=== PATIENT | female | born 1995 | race Caucasian/White ===

== ENCOUNTER 2020-02-16 15:42 | Inpatient (IN) | payer OTHER, SELFPAY ==
[2020-02-16] VITALS (12 sets, daily range): BP systolic 101–139; BP diastolic 55–92; PULSE 94–122; RESP 20–30; TEMP 36.8–39.8; O2SAT 81–97; BMI 43.6; BMI 43.7; BMI 41.3
--- NOTE | 2020-02-16 16:10 | RAD_ITS ---
STUDY: X-RAY CHEST REASON FOR EXAM: Female, 24 years old. pt COVID positive on thursday. sob, cough, body aches, 88% on RA TECHNIQUE: Single AP portable view of the chest. COMPARISON: 2016 FINDINGS: EKG leads overlie the chest Scattered patchy opacifications in both lung walker more prominent on the right than the left. Findings are consistent with Covid pneumonia, but also could be seen with multifocal pneumonitis or drug toxicity/interaction There is no demonstrated pleural abnormality. Normal size heart. Normal mediastinum and caroline. Normal visualized pulmonary arteries. Normal visualized aortic arch and descending thoracic aorta. Normal visualized thoracic spine. Normal visualized ribs, clavicles, and shoulders. There is no demonstrated abnormality of the visualized soft tissue structures of the upper abdomen. RAD/Chest 1 View (Portable) IMPRESSION: Patchy interstitial and air space opacifications of both lung walker. Differential as described above. Electronically Signed: Wong Guillen MD at 16:26 EST , Service support ,
--- NOTE | 2020-02-16 16:21 | ED.VIS.DYS ---
History of Present Illness Chief Complaint: Shortness of Breath Informant: Patient Narrative: Patient presenting for evaluation secondary to complications from coronavirus. Patient did recently test positive for coronavirus, she has had symptoms for around a week. Patient states that recently she has been getting significantly more short of breath. She has been having nausea and vomiting and diarrhea associated with this. She has generalized malaise and fevers. She did take Tylenol just prior to arrival. She is a non-smoker, she has no history of lung disease. Patient was noted to be hypoxic on room air prior to arrival in the 80s. She denies any chest pain. She denies any hemoptysis. Review of systems otherwise negative. Past Medical History - Allergies and Home Meds Allergies/Adverse Reactions: Allergies No Known Allergies Allergy (Verified 01/05/15 08:18) Primary Care Physician: Stephanie Singleton DO [STAFF PHYSICIAN] - Prior records reviewed: Yes Past Medical History: - - PCOS Smoking Status: Never smoker Alcohol: None Drugs: None Review of Systems All systems negative except as indicated General: Reports: Fever, Malaise Eyes: Denies: Visual changes - bilaterally, Diplopia ENT: Denies: Rhinorrhea, Sore throat Cardiovascular: Denies: Chest pain, Palpitations Respiratory: Reports: Dyspnea, Cough Gastrointestinal: Reports: Nausea, Vomiting, Diarrhea Genitourinary: Denies: Dysuria, Hematuria, Frequency Musculoskeletal: Denies: Back pain, Extremity Pain Skin: Denies: Rash, Wounds Neurological: Denies: Headache, Weakness, Numbness Physical Exam Vital Signs/Narrative: Vital Signs Temp Pulse Resp BP Pulse Ox 02/16/20 15:43 98.7 F 114 H 20 H 111/79 96 Inital Vital Signs reviewed: Yes General: Well nourished, Well developed, No Acute Distress Head: Normocephalic, Atraumatic Eyes: Perrl, EOMI ENT: Moist mucous membranes, No rhinorrhea Neck: Supple, Nontender Cardiovascular: Regular rhythm, No murmurs, Tachycardia Respiratory: CTA bilaterally, Chest nontender, - - Tachypnea without overt respiratory distress. Clear lung sounds. Abdomen: Soft, Nontender, Nondistended, Normal bowel sounds Back: Nontender, Normal Inspection Extremities: Nontender, No edema Skin: Normal color, No rash Neurological: Alert, Oriented x3, Cranial nerves II-XII grossly intact, Normal Strength, Normal Sensation Psychological: Normal affect, Normal Mood Diagnostic/Tx/Re-eval Clinical Impression(s) from Imaging Studies Chest X-Ray 02/16/20 16:10 IMPRESSION: Patchy interstitial and air space opacifications of both lung walker. Differential as described above. Electronically Signed: Wong Guillen MD at 16:26 EST , Service support , Laboratory Data 02/16/20 02/16/20 02/16/20 16:35 16:35 16:35 WBC 7.7 RBC 5.02 Hgb 13.7 Hct 42.1 MCV 83.9 MCH 27.3 MCHC 32.5 RDW Std Deviation 37.7 RDW Coeff of David 12.4 Plt Count 233 MPV 10.6 Neut % (Auto) Not Reportable Total Counted 100 Neutrophils % (Manual) 66 Band Neutrophils % 2 Lymphocytes % (Manual) 22 Monocytes % (Manual) 5 Myelocytes % 5 H Diff Path Review May foll Platelet Estimate ADEQUATE RBC Morphology NORM C+C Anisocytosis RARE Sodium 137 Potassium 3.2 L Chloride 102 Carbon Dioxide 27.0 Anion Gap 8 BUN 7 Creatinine 0.75 Estim Creat Clear Calc 86.53 Est GFR (MDRD) Af Amer 121 Est GFR (MDRD) Non-Af 100 BUN/Creatinine Ratio 9.4 L Glucose 99 Lactic Acid 1.4 Calcium 8.6 Total Bilirubin 0.40 AST 35 ALT 35 Alkaline Phosphatase 62 Total Protein 7.6 Albumin 3.3 Globulin 4.3 H Albumin/Globulin Ratio 0.8 L - Medical Decision Making Patient presented secondary to complications of coronavirus. Chest x-ray per radiology review as well as my personal review shows 1 view of the chest with bilateral infiltrates consistent with coronavirus infection. CBC is not significantly abnormal, chemistry shows hypokalemia, potassium was replaced lactic acid was found to be normal. Initially I thought the patient would be a candidate for outpatient home oxygen, but unfortunately she lives in [place] and not in the area and that was unable to be coordinated. Due to the patient's new oxygen requirement I believe that she requires admission. I discussed this with the hospitalist. ED Disposition - Plan for ED Patient: Disposition: Acute Care Hospital [facility] Diagnosis: COVID-19, Hypoxia, Hypokalemia
[2020-02-16 16:55] LABS: Hematocrit 42.1 % (37-47); Hemoglobin 13.7 g/dL (12.0-15.0); Mean Corp Hgb Conc 32.5 g/dL (32-36); Mean Corpuscular Hgb 27.3 pg (27.0-32.0); Mean Corpuscular Volume 83.9 fL (81-99); Mean Platelet Vol. 10.6 fl (6.2-12.0); POSITIVE COUNT YES; POSITIVE MORPHOLOGY YES; Platelet Count 233 K/mm3 (150-450); RBC Distribution Width CV 12.4 % (11.6-14.6); RBC Distribution Width SD 37.7 fl (35.1-43.9); Red Blood Count 5.02 M/mm3 (4.2-5.4); White Blood Count 7.7 K/mm3 (4.4-11.0)
[2020-02-16 17:01] LABS: ALB/GLOB Ratio 0.8 RATIO (0.9-2.4); AST(SGOT) 35 U/L (15-37); Alanine Aminotransfer ALT/SGPT 35 U/L (13-56); Albumin, Serum 3.3 g/dL (3.2-5.0); Alkaline Phosphatase 62 U/L (45-117); Anion Gap 8 (5-15); BUN 7 mg/dL (7-18); BUN/Creat Ratio 9.4 RATIO (10-20); Calcium,Total 8.6 mg/dL (8.5-10.1); Chloride 102 mmol/L (98-107); Creatinine, Serum 0.75 mg/dL (0.55-1.02); EST Glomerular Filtration Rate 100 mL/min (>60); Est Glom Filt Rate - Afr Amer 121 mL/min (>60); Estimated Creatinine Clearance 86.53 ml/min; Globulin 4.3 g/dL (2.2-4.2); Glucose 99 mg/dL (74-106); Potassium 3.2 mmol/L (3.5-5.1); Protein, Total 7.6 g/dL (6.4-8.2); Sodium Level 137 mmol/L (136-145)
[2020-02-16 17:06] LABS: Lactic Acid 1.4 mmol/L (0.4-1.9)
[2020-02-16 17:14] LABS: Differential Indicated MANUAL DIFF
[2020-02-16 17:32] LABS: Lymphocyte 22 % (19-41); Monocyte 5 % (0-10); Myelocyte 5 (0-0); Neutrophil-Band 2 % (0-5); Neutrophil-Segmented 66 % (47-70); Total Cells Counted 100 (MANUAL DIFF)
[2020-02-16 17:33] LABS: Anisocytosis RARE; Platelet Estimate ADEQUATE (ADEQ); Red Cell Morphology NORM C+C NORMAL (NORM C&C)
[2020-02-16 17:42] LABS: Absolute Lymphocyte Count 1.68 X10^3/uL (0.83-4.51); Absolute Neutrophil Count 5.2 X10^3/uL (2.0-7.7)
--- NOTE | 2020-02-16 17:50 | PCM.HP.STD ---
History of Present Illness Date of Admission: 02/16/20 Chief Complaint: shortness of breath The patient is a 24 year old F with a past medical history of polycystic ovarian disease. She was admitted through the ED on 02/16/2020 with a complaint of shortness of breath which is not improving. Patient states she tested positive for coronavirus about 5 days ago and has had symptoms for about a week before then. She states her boyfriend also has coronavirus but his is a very mild case. She lives in [place] and [place] However his symptoms got worse and her shortness of breath got more worse with a cough which was minimally productive. She also had nausea and vomiting as well as diarrhea associated and generalized malaise and fevers. On admission in the ED, she was noted to have been hypoxic prior to arrival with saturation in the 80s. Review of symptoms otherwise negative. Vitals show temperature of 98.3 with blood pressure of 101/69, pulse rate of 108 and respiratory rate of 29. She was saturating at 97% on 2 L of oxygen. Chemistry showed potassium of 3.2 but was otherwise unremarkable with lactic acid of 1.4. CBC was also unremarkable. Chest x-ray showed patchy interstitial and airspace opacifications of both lung walker. She has been admitted to be managed for acute hypoxic respiratory insufficiency due to COVID-19 infection[] Past Medical History Allergies No Known Allergies Allergy (Verified 01/05/15 08:18) Home Medications: Ambulatory Orders Medication Instructions Recorded Acetaminophen [Tylenol Extra 1,000 mg PO Q6H PRN PRN 02/16/20 Strength] Doxycycline Hyclate 100 mg PO BID 02/16/20 Metformin HCl [Metformin HCl ER] 500 mg PO DAILY 02/16/20 Surgical History: no surgical history Psychiatric History: No pertinent psych hx [employer] History: No pertinent [employer] history Lives: With Family Smoking Status: Never smoker Alcohol: None Drugs: None - *Family History Maternal History Items: No pertinent history Paternal History Items: No pertinent history Review of Systems Constitutional: Reports: Anorexia, Chills, Fever, Malaise, Weakness, Fatigue Eyes: Denies: Blurred vision HEENT: Denies: Head Aches, Sinus Congestion, Sinus Drainage Cardiovascular: Denies: Chest Pain, Palpitations Respiratory: Reports: Cough, Shortness of Breath, Shortness of breath at rest, Shortness of breath upon exertion, Sputum production Gastrointestinal: Denies: Abdominal Pain, Nausea, Vomiting Genitourinary: Denies: Dysuria Musculoskeletal: Denies: Joint Pain, Joint Tenderness Skin: Denies: Rash, Wounds Neurological: Denies: Numbness, Tingling, Focal weakness Psychiatric: Denies: Anxiety, Depression, Homicidal Ideations, Suicidal Ideations Hematologic/ Lymphatic: Denies: Easy Bruising, Easy Bleeding VTE Information - Inpt Only VTE Present on Admission: No VTE Pharm Prophylaxis ordered?: Yes - Physical Exam Vitals/I&O's: Vital Signs Temp Pulse Resp BP Pulse Ox 98.3 F 108 H 29 H 101/69 97 02/16/20 17:10 02/16/20 17:10 02/16/20 17:10 02/16/20 17:10 02/16/20 17:10 Oxygen Flow Rate (L/min) 2 Oxygen Delivery Method Nasal Cannula Weight: 231 lb 0.711 oz Body Mass Index (BMI) 43.6 General: Alert, Oriented x3, Cooperative, No apparent distress, - - looks uncomfortable HEENT: Atraumatic, PERRLA, EOMI, Normocephalic Oral: Dry Mucosa Neck: Supple, No JVD, Negative Carotid Bruits Lungs: - - Diminished breath sounds bibasilarly. No wheezes or crackles. Tachypneic. On 2 L of oxygen. Cardiovascular: Regular rate, Regular Rhythm, No murmurs Abdomen: Bowel Sounds Present, Soft, Non Tender, Non-Distended, No Hepato-splenomegaly Extremities: No clubbing, No cyanosis, No edema, Capillary Refill Less than 3 Seconds Skin: No rashes, No breakdown Musculoskeletal: No Tenderness to Palpation of Joints or Extremities Lymphatic: No Cervical, Supraclavicular, or Inguinal Adenopathy Neurological: Cranial nerves II-XII grossly intact, Neuro grossly intact, Motor Exam 5/5 strength throughout Psych/Mental Status: Normal Affect, Appropriate, Alert and oriented to time, place, person, mood and affect Laboratory Results 02/16/20 16:35: WBC 7.7, RBC 5.02, Hgb 13.7, Hct 42.1, MCV 83.9, MCH 27.3, MCHC 32.5, RDW Std Deviation 37.7, RDW Coeff of David 12.4, Plt Count 233, MPV 10.6, Neut % (Auto) Not Reportable, Absolute Neuts (auto) 5.2, Absolute Lymphs (auto) 1.68, Total Counted 100, Neutrophils % (Manual) 66, Band Neutrophils % 2, Lymphocytes % (Manual) 22, Monocytes % (Manual) 5, Myelocytes % 5 H, Diff Path Review July, Platelet Estimate ADEQUATE, RBC Morphology NORM C+C, Anisocytosis RARE 02/16/20 16:35: Sodium 137, Potassium 3.2 L, Chloride 102, Carbon Dioxide 27.0, Anion Gap 8, BUN 7, Creatinine 0.75, Estim Creat Clear Calc 86.53, Est GFR (MDRD) Af Amer 121, Est GFR (MDRD) Non-Af 100, BUN/Creatinine Ratio 9.4 L, Glucose 99, Calcium 8.6, Total Bilirubin 0.40, AST 35, ALT 35, Alkaline Phosphatase 62, Total Protein 7.6, Albumin 3.3, Globulin 4.3 H, Albumin/Globulin Ratio 0.8 L 02/16/20 16:35: Lactic Acid 1.4 Diagnostic Data Chest X-Ray 02/16/20 16:10 IMPRESSION: Patchy interstitial and air space opacifications of both lung walker. Differential as described above. Electronically Signed: Wong Guillen MD at 16:26 EST , Service support , Current Medications Sodium Chloride () 1,000 mls @ 125 mls/hr IV .Q8H [facility] Assessment/Plan All Active Problems COVID-19 (Acute) Hypoxia (Acute) Hypokalemia (Acute) 24-year-old patient admitted with a complaint of shortness of breath as well as nausea, vomiting and diarrhea. #Acute hypoxic respiratory insufficiency due to COVID-19 infection Admit to Covid unit Consult ID. Check D-dimer, LDH, CRP IV Decadron 6 mg daily Titrate oxygen to maintain saturation above 90% Breathing treatments with bronchodilators Tylenol as needed, IV Zofran ID to decide if patient will benefit from remdesivir and convalescent plasma #COVID-19 infection: As above #SIRS criteria: There is no clear evidence of bacterial infection. This is likely due to Covid. She is tachycardic and tachypneic. Will monitor not start antibiotics for now. ##Hypokalemia: Potassium is 3.3. Will replace. #: History of polycystic ovarian syndrome: Stable DVT prophylaxis: Lovenox Inpatient E&M: 32315 Init Hosp L3
[2020-02-16] MEDS: 0.9% Normal Saline 1,000 ML 125 ML IV (17:53)
[2020-02-16] MEDS: Acetaminophen 325 MG Tablet 650 MG PO (21:49)
[2020-02-16 21:50] LABS: Fibrinogen 625 mg/dl (203-444); International Normalized Ratio 1.1; Prothrombin Time (Protime)PT. 13.2 SECONDS (11.7-14.9)
[2020-02-16] MEDS: Enoxaparin 40 MG/0.4 ML Syringe SC (21:50)
[2020-02-16 22:02] LABS: LDH 317 U/L (84-246)
[2020-02-16 22:24] LABS: CPK Total, Creatine Kinase 282 U/L (26-192)
[2020-02-16 22:52] LABS: BNP,B-Type NATRIURETIC PEPTIDE < 2.0 pg/mL (0-100)
[2020-02-17] VITALS (14 sets, daily range): BP systolic 108–127; BP diastolic 68–82; PULSE 84–112; RESP 20–28; TEMP 36.4–38.1; O2SAT 69–97
[2020-02-17] MEDS: Acetaminophen 325 MG Tablet 650 MG PO ×3 (05:21→20:31)
[2020-02-17] MEDS: guaiFENesin 10 ML UDC (200MG/10ML) PO ×3 (05:21→20:31)
[2020-02-17 06:02] LABS: Absolute Lymphocyte Count 1.45 X10^3/uL (0.83-4.51); Absolute Neutrophil Count 4.7 X10^3/uL (2.0-7.7); Basophil# 0.05 X10^3/uL; Basophil% 0.7 % (0-1); Hematocrit 37.8 % (37-47); Hemoglobin 12.1 g/dL (12.0-15.0); Lymphocyte # 1.45 X10^3/ul (4.0); Lymphocyte % 20.8 % (19-41); Mean Corpuscular Hgb 27.4 pg (27.0-32.0); Mean Corpuscular Volume 85.7 fL (81-99); Mean Platelet Vol. 10.6 fl (6.2-12.0); Monocyte# 0.46 X10^3/uL; Monocyte% 6.6 % (0-10); NRBC Flagged by Analyzer 0 % (0-5); Neutrophil % 67.6 % (47-70); Platelet Count 193 K/mm3 (150-450); RBC Distribution Width CV 12.5 % (11.6-14.6); RBC Distribution Width SD 38.9 fl (35.1-43.9); Red Blood Count 4.41 M/mm3 (4.2-5.4)
[2020-02-17 06:29] LABS: ALB/GLOB Ratio 0.7 RATIO (0.9-2.4); AST(SGOT) 31 U/L (15-37); Alanine Aminotransfer ALT/SGPT 27 U/L (13-56); Albumin, Serum 2.6 g/dL (3.2-5.0); Alkaline Phosphatase 52 U/L (45-117); Anion Gap 5 (5-15); BUN 5 mg/dL (7-18); BUN/Creat Ratio 8.8 RATIO (10-20); Chloride 106 mmol/L (98-107); Creatinine, Serum 0.57 mg/dL (0.55-1.02); EST Glomerular Filtration Rate 136 mL/min (>60); Est Glom Filt Rate - Afr Amer 165 mL/min (>60); Estimated Creatinine Clearance 113.85 ml/min; Globulin 3.7 g/dL (2.2-4.2); Glucose 101 mg/dL (74-106); Potassium 3.5 mmol/L (3.5-5.1); Protein, Total 6.3 g/dL (6.4-8.2); Sodium Level 135 mmol/L (136-145)
[2020-02-17 06:50] LABS: D-Dimer Quantitative (DVT/PE) 0.67 FEU/ug/m (0.27-0.49)
--- NOTE | 2020-02-17 06:52 | CON.PCM_ITS ---
Reason for Consult Date of Consultation: 02/17/20 Reason for Consultation: Acute respiratory insufficiency secondary to COVID-19 pneumonia History of Present Illness: The patient is a 24-year-old female, with a history as outlined below, who presented to the emergency department on February 15 with complaints of shortness of breath and nonproductive cough. The patient initially tested positive for coronavirus approximately 6 days ago with symptoms that preceded her testing by 5 days. The patient does report exposure to her boyfriend who has been diagnosed with coronavirus. The patient normally resides in [place] but is in the area to visit family. On presentation to the emergency department, the patient was noted to be afebrile but was tachycardic and tachypneic. She was initially documented to be saturating 81% on room air. Laboratory evaluation revealed a normal CBC with differential. Coagulation profile revealed a mildly elevated D-dimer. Chemistry profile was notable for a potassium of 3.2 and procalcitonin of 0.10. Chest x-ray revealed patchy bilateral airspace opacities, right greater than left. The patient was started on Decadron and admitted to the coronavirus cohort unit for further management. Past Medical History Allergies No Known Allergies Allergy (Verified 01/05/15 08:18) Home Medications: Ambulatory Orders Medication Instructions Recorded Acetaminophen [Tylenol Extra 1,000 mg PO Q6H PRN PRN 02/16/20 Strength] Doxycycline Hyclate 100 mg PO BID 02/16/20 Metformin HCl [Metformin HCl ER] 500 mg PO DAILY 02/16/20 Surgical History: no surgical history Psychiatric History: No pertinent psych hx [employer] History: No pertinent [employer] history Lives: With Family Smoking Status: Never smoker Alcohol: None Drugs: None - *Family History Maternal History Items: No pertinent history Paternal History Items: No pertinent history Review of Systems Constitutional: Reports: Malaise, Weakness, Fatigue Eyes: Denies: Blurred vision, Double vision HEENT: Denies: Head Aches, Sinus Congestion, Sinus Drainage Cardiovascular: Denies: Chest Pain, Palpitations Respiratory: Reports: Cough, Shortness of Breath Gastrointestinal: Denies: Abdominal Pain, Nausea, Vomiting Genitourinary: Denies: Dysuria Musculoskeletal: Denies: Joint Pain, Joint Tenderness Skin: Denies: Rash, Wounds Neurological: Denies: Numbness, Tingling, Focal weakness Psychiatric: Denies: Anxiety, Depression, Homicidal Ideations, Suicidal Ideations Hematologic/ Lymphatic: Denies: Easy Bruising, Easy Bleeding Patient Problems: Active and Suspected Problems COVID-19 (Acute) Objective: The patient's most recent lab work, culture data and imaging studies have all been personally reviewed. - Physical Exam Vitals/I&O's: Vital Signs Temp Pulse Resp BP Pulse Ox 100.5 F H 110 H 28 H 121/70 H 95 02/17/20 05:23 02/17/20 05:23 02/17/20 05:23 02/17/20 05:23 02/17/20 05:23 Oxygen Flow Rate (L/min) 2 Oxygen Delivery Method Nasal Cannula Weight: 219 lb Body Mass Index (BMI) 41.3 Intake and Output for Last 24 Hours 02/15/20 02/16/20 02/17/20 23:59 23:59 23:59 Intake Total 740 / 740 1999 Balance 740 / 740 1999 General: Alert, Cooperative, No apparent distress, - - Ill and fatigued in appearance HEENT: Atraumatic, PERRLA, Normocephalic Oral: No Gingival or Mucosal Lesions/ Ulcerations Neck: Supple, No Nodes, Trachea Midline Lungs: Tachypneic, - - Fair air movement bilaterally with frequent coughing. Cardiovascular: Normal S1, Normal S2, No murmurs, Tachycardic Abdomen: Bowel Sounds Present, Soft, Non Tender, Obese Extremities: No clubbing, No cyanosis, No edema Skin: No breakdown Musculoskeletal: No Tenderness to Palpation of Joints or Extremities, No Muscle Wasting Lymphatic: No Cervical, Supraclavicular, or Inguinal Adenopathy Neurological: Cranial nerves II-XII grossly intact, Neuro grossly intact Psych/Mental Status: Alert and oriented to time, place, person, mood and affect Labs (Last 48 Hours) 02/16/20 02/16/20 02/16/20 16:35 16:35 16:35 WBC 7.7 RBC 5.02 Hgb 13.7 Hct 42.1 MCV 83.9 MCH 27.3 MCHC 32.5 RDW Std Deviation 37.7 RDW Coeff of David 12.4 Plt Count 233 MPV 10.6 Immature Gran % (Auto) Neut % (Auto) Not Reportable Lymph % (Auto) [place] % (Auto) Eos % (Auto) Baso % (Auto) Absolute Neuts (auto) 5.2 Absolute Lymphs (auto) 1.68 Total Counted 100 Neutrophils % (Manual) 66 Band Neutrophils % 2 Lymphocytes % (Manual) 22 Monocytes % (Manual) 5 Myelocytes % 5 H Nucleated RBC % Diff Path Review May foll Platelet Estimate ADEQUATE RBC Morphology NORM C+C Anisocytosis RARE PT INR Fibrinogen D-Dimer Quant (PE/DVT) Sodium 137 Potassium 3.2 L Chloride 102 Carbon Dioxide 27.0 Anion Gap 8 BUN 7 Creatinine 0.75 Estim Creat Clear Calc 86.53 Est GFR (MDRD) Af Amer 121 Est GFR (MDRD) Non-Af 100 BUN/Creatinine Ratio 9.4 L Glucose 99 Lactic Acid 1.4 Calcium 8.6 Total Bilirubin 0.40 AST 35 ALT 35 Alkaline Phosphatase 62 Lactate Dehydrogenase Total Creatine Kinase C-React Prot Ext Range B-Natriuretic Peptide Total Protein 7.6 Albumin 3.3 Globulin 4.3 H Albumin/Globulin Ratio 0.8 L Procalcitonin 02/16/20 02/16/20 02/16/20 16:35 16:35 16:35 WBC RBC Hgb Hct MCV MCH MCHC RDW Std Deviation RDW Coeff of David Plt Count MPV Immature Gran % (Auto) Neut % (Auto) Lymph % (Auto) [place] % (Auto) Eos % (Auto) Baso % (Auto) Absolute Neuts (auto) Absolute Lymphs (auto) Total Counted Neutrophils % (Manual) Band Neutrophils % Lymphocytes % (Manual) Monocytes % (Manual) Myelocytes % Nucleated RBC % Diff Path Review Platelet Estimate RBC Morphology Anisocytosis PT 13.2 INR 1.1 Fibrinogen 625 H D-Dimer Quant (PE/DVT) 0.50 H Sodium Potassium Chloride Carbon Dioxide Anion Gap BUN Creatinine Estim Creat Clear Calc Est GFR (MDRD) Af Amer Est GFR (MDRD) Non-Af BUN/Creatinine Ratio Glucose Lactic Acid Calcium Total Bilirubin AST ALT Alkaline Phosphatase Lactate Dehydrogenase 317 H Total Creatine Kinase C-React Prot Ext Range B-Natriuretic Peptide Total Protein Albumin Globulin Albumin/Globulin Ratio Procalcitonin 0.10 H 02/16/20 02/16/20 02/17/20 16:35 16:35 05:50 WBC 7.0 RBC 4.41 Hgb 12.1 Hct 37.8 MCV 85.7 MCH 27.4 MCHC 32.0 RDW Std Deviation 38.9 RDW Coeff of David 12.5 Plt Count 193 MPV 10.6 Immature Gran % (Auto) 4.300 H Neut % (Auto) 67.6 Lymph % (Auto) 20.8 [place] % (Auto) 6.6 Eos % (Auto) 0.0 Baso % (Auto) 0.7 Absolute Neuts (auto) 4.7 Absolute Lymphs (auto) 1.45 Total Counted Neutrophils % (Manual) Band Neutrophils % Lymphocytes % (Manual) Monocytes % (Manual) Myelocytes % Nucleated RBC % 0 Diff Path Review Platelet Estimate RBC Morphology Anisocytosis PT INR Fibrinogen D-Dimer Quant (PE/DVT) Sodium Potassium Chloride Carbon Dioxide Anion Gap BUN Creatinine Estim Creat Clear Calc Est GFR (MDRD) Af Amer Est GFR (MDRD) Non-Af BUN/Creatinine Ratio Glucose Lactic Acid Calcium Total Bilirubin AST ALT Alkaline Phosphatase Lactate Dehydrogenase Total Creatine Kinase 282 H C-React Prot Ext Range 154.00 H B-Natriuretic Peptide < 2.0 Total Protein Albumin Globulin Albumin/Globulin Ratio Procalcitonin 02/17/20 02/17/20 05:50 05:50 WBC RBC Hgb Hct MCV MCH MCHC RDW Std Deviation RDW Coeff of David Plt Count MPV Immature Gran % (Auto) Neut % (Auto) Lymph % (Auto) [place] % (Auto) Eos % (Auto) Baso % (Auto) Absolute Neuts (auto) Absolute Lymphs (auto) Total Counted Neutrophils % (Manual) Band Neutrophils % Lymphocytes % (Manual) Monocytes % (Manual) Myelocytes % Nucleated RBC % Diff Path Review Platelet Estimate RBC Morphology Anisocytosis PT INR Fibrinogen D-Dimer Quant (PE/DVT) 0.67 H* Sodium 135 L Potassium 3.5 Chloride 106 Carbon Dioxide 24.0 Anion Gap 5 BUN 5 L Creatinine 0.57 Estim Creat Clear Calc 113.85 Est GFR (MDRD) Af Amer 165 Est GFR (MDRD) Non-Af 136 BUN/Creatinine Ratio 8.8 L Glucose 101 Lactic Acid Calcium 8.0 L Total Bilirubin 0.40 AST 31 ALT 27 Alkaline Phosphatase 52 Lactate Dehydrogenase Total Creatine Kinase C-React Prot Ext Range B-Natriuretic Peptide Total Protein 6.3 L Albumin 2.6 L Globulin 3.7 Albumin/Globulin Ratio 0.7 L Procalcitonin Microbiology 02/16/20 21:55 Mucosa - Nose Respiratory Panel (PCR) - Final 02/16/20 22:00 Urine, Clean Catch Legionella Antigen - Final 02/16/20 22:00 Urine, Clean Catch Streptococcus pneumoniae Antigen (M - Final Clinical Impression(s) from Imaging Studies Chest X-Ray 02/16/20 16:10 IMPRESSION: Patchy interstitial and air space opacifications of both lung walker. Differential as described above. Electronically Signed: Wong Guillen MD at 16:26 EST , Service support , Current Medications Acetaminophen (Acetaminophen 325 Mg Tablet) 650 mg PO Q4H PRN PRN PRN Reason: Pain Score 1-10/Temp > 100.7 F Last Admin: 02/17/20 05:21 Dose: 650 mg Documented by: Al Hydroxide/Mg Hydroxide (Mag Hydrox/Al Hydrox/Simeth 30 Ml Udc) 30 ml PO Q6H PRN PRN PRN Reason: Gastric Burning Dexamethasone Sodium Phosphate (Dexamethasone 10 Mg/Ml Vial) 6 mg IV DAILY [facility] Docusate Sodium (Docusate Sodium 100 Mg Capsule) 200 mg PO BID PRN PRN PRN Reason: Constipation Enoxaparin Sodium (Enoxaparin 40 Mg/0.4 Ml Syringe) 40 mg SC BID [facility] Last Admin: 02/16/20 21:50 Dose: 40 mg Documented by: Guaifenesin (Guaifenesin 10 Ml Udc (200mg/10ml)) 10 ml PO Q4H PRN PRN PRN Reason: COUGH Last Admin: 02/17/20 05:21 Dose: 10 ml Documented by: Influenza Virus Vaccine Quadrival (Influenza Vaccine (6mos+)/Pf 0.5 Ml Syringe) 0.5 ml IM .ONCE ONE Stop: 02/17/20 10:01 Morphine Sulfate (Morphine 2 Mg/Ml Syringe) 1 - 2 mg IV Q4H PRN PRN PRN Reason: Pain Score 4-5 Morphine Sulfate (Morphine 2 Mg/Ml Syringe) 2 - 4 mg IV Q3H PRN PRN PRN Reason: Pain Score 6-10 Ondansetron HCl (Ondansetron 4 Mg/2 Ml Vial) 4 mg IV Q8H PRN PRN PRN Reason: NAUSEA/VOMITING Oxycodone HCl (Oxycodone 5 Mg Tablet) 5 mg PO Q4H PRN PRN PRN Reason: Pain Score 4-5 Polyethylene Glycol (Polyethylene Glycol 3350 17 Gm Packet) 17 gm PO DAILY [facility] Prochlorperazine Edisylate (Prochlorperazine 10 Mg/2 Ml Vial) 10 mg IV Q6H PRN PRN PRN Reason: Nausea/Vomiting Sodium Chloride (0.9% Saline Lock 10 Ml Syringe) 10 - 40 ml IV UD PRN PRN Reason: SALINE FLUSH Assessment/Plan All Active Problems COVID-19 (Acute) Hypoxia (Acute) Hypokalemia (Acute) RECOMMENDATIONS: 1. Continue current supportive measures with supplemental oxygen to maintain saturations at or above 90%. 2. Continue Decadron 6 mg daily x10 days. 3. Continue Lovenox twice daily as ordered. 4. Encourage incentive spirometer use and mobilize patient as tolerated. 5. ID consultation is pending. Will defer need for convalescent plasma and remdesivir to ID. IMPRESSIONS: 1. Acute hypoxemic respiratory insufficiency secondary to COVID-19 pneumonia The patient initially presented to the hospital with Covid-like symptoms of approximately 1.5 weeks duration. She did have recent contact with a coronavirus positive individual. She is currently maintaining appropriate oxygen saturations on 2 L/min. The patient will be continued on Decadron 6 mg daily x10 days, as ordered. D-dimer was not significantly elevated. Therefore, we will continue prophylactic dosing of Lovenox. Encourage incentive spirometer use and mobilize patient as tolerated. This note was generated with [employer] dictation software. It may contain incorrect words, spelling, and punctuation that were not noted in checking the note before signing. Inpatient E&M: 47429 Init Hosp L3
[2020-02-17] MEDS: dexAMETHasone 10 MG/ML Vial 6 MG IV (08:16)
[2020-02-17] MEDS: 0.9% Saline Lock 10 ML Syringe IV ×4 (08:16→20:34)
[2020-02-17] MEDS: Enoxaparin 40 MG/0.4 ML Syringe SC ×2 (08:17→20:31)
[2020-02-17] MEDS: Ondansetron 4 MG/2 ML Vial IV (08:31)
--- NOTE | 2020-02-17 08:35 | NURSING ---
PT O2 SAT 69% ON RA AFTER AMBULATING TO BR
--- NOTE | 2020-02-17 10:49 | CASEMGMT ---
BE GILMORE assessment: Phone interview with patient for initial transition planning/care coordination assessment d/t COVID pna. BE GILMORE introduced self and role at [facility], pt voices understanding and consents to assessment at this time. Pt is SOB with persistent cough on phone at this time. Pt is A/Ox4 at this time and answers all questions appropriately at this time. Care providers, pharmacy, and demographics verified/updated at this time. Presentation: Pt COVID + on thursday and c/o SOB, cough, achey since-pt is 88% on ra Admitting dx: COVID 19 PCP: Pt states does not currently have a PCP but declines list at this time as she is switching to new insurance next month. Specialists: Pt states no current specialists. Preferred Pharmacy: [facility] retail pharmacy Insurance: [facility] Prescription Benefit: [facility] Living Will/HPOA: Pt states does not have a LW/HPOA and declines AD info at this time. LNOK: Megan Dwyer, mother; Qing Dueñas, grandmother Living Arrangements: Pt states lives with boyfriend in home and states no concerns at home at this time. Pt states is independent with ADL's. Transportation: Pt states drives self and states no transportation concerns at this time. DME/HHC: Pt states no current DME or need for any at this time. Pt states no preference for home oxygen, if need for discharge. Pt does live in [place]. Pt states no hx of HHC or SNF in the past. Pt states no concerns with going home at time of discharge. 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 Pt states does not smoke cigarettes or drink ETOH. Pt states no further concerns/needs at this time. CM to follow for home oxygen need and any further discharge planning/needs. Advised pt to ask for CM if any further questions/concerns/needs arise, voices understanding. Pt Goal: Home Plan: Home, pending home oxygen testing. [place] BE GILMORE
[2020-02-17 13:55] LABS: Pathologist Review Reviewed
--- NOTE | 2020-02-17 15:14 | PCM.PN.HOSP ---
Subjective: Doing well, she is stable on 2 L nasal cannula Vitals/I&O's: Vital Signs Temp Pulse Resp BP Pulse Ox 98 F 98 24 H 108/68 69 02/17/20 08:11 02/17/20 13:59 02/17/20 08:11 02/17/20 08:11 02/17/20 08:34 Oxygen Flow Rate (L/min) 2 Oxygen Delivery Method Room Air Weight: 219 lb Body Mass Index (BMI) 41.3 Intake and Output for Last 24 Hours 02/15/20 02/16/20 02/17/20 23:59 23:59 23:59 Intake Total 740 / 740 2340 / 2340 Balance 740 / 740 2340 / 2340 General: Alert, Oriented x3, Cooperative, No apparent distress HEENT: Atraumatic, PERRLA, EOMI, Normocephalic Oral: Moist Mucosa Neck: Supple, No JVD Lungs: No rhonchi, No wheeze, No rales, Diminished, Tachypneic Cardiovascular: Regular Rhythm, Normal S1, Normal S2, No murmurs, Tachycardic Abdomen: Soft, Non Tender, Non-Distended, No Hepato-splenomegaly Extremities: No edema, Capillary Refill Less than 3 Seconds Skin: No rashes, No breakdown Neurological: Neuro grossly intact, Sensory exam intact to light touch and pain Psych/Mental Status: Normal Affect, Appropriate Microbiology Past 72 Hours 02/16/20 21:55 Mucosa - Nose Respiratory Panel (PCR) - Final 02/16/20 22:00 Urine, Clean Catch Legionella Antigen - Final 02/16/20 22:00 Urine, Clean Catch Streptococcus pneumoniae Antigen (M - Final Laboratory Results 02/16/20 16:35: WBC 7.7, RBC 5.02, Hgb 13.7, Hct 42.1, MCV 83.9, MCH 27.3, MCHC 32.5, RDW Std Deviation 37.7, RDW Coeff of David 12.4, Plt Count 233, MPV 10.6, Neut % (Auto) Not Reportable, Absolute Neuts (auto) 5.2, Absolute Lymphs (auto) 1.68, Total Counted 100, Neutrophils % (Manual) 66, Band Neutrophils % 2, Lymphocytes % (Manual) 22, Monocytes % (Manual) 5, Myelocytes % 5 H, Diff Path Review Reviewed, Platelet Estimate ADEQUATE, RBC Morphology NORM C+C, Anisocytosis RARE 02/16/20 16:35: Sodium 137, Potassium 3.2 L, Chloride 102, Carbon Dioxide 27.0, Anion Gap 8, BUN 7, Creatinine 0.75, Estim Creat Clear Calc 86.53, Est GFR (MDRD) Af Amer 121, Est GFR (MDRD) Non-Af 100, BUN/Creatinine Ratio 9.4 L, Glucose 99, Calcium 8.6, Total Bilirubin 0.40, AST 35, ALT 35, Alkaline Phosphatase 62, Total Protein 7.6, Albumin 3.3, Globulin 4.3 H, Albumin/Globulin Ratio 0.8 L 02/16/20 16:35: Lactic Acid 1.4 02/16/20 16:35: Lactate Dehydrogenase 317 H 02/16/20 16:35: Procalcitonin 0.10 H 02/16/20 16:35: PT 13.2, INR 1.1, Fibrinogen 625 H, D-Dimer Quant (PE/DVT) 0.50 H 02/16/20 16:35: Total Creatine Kinase 282 H, C-React Prot Ext Range 154.00 H 02/16/20 16:35: B-Natriuretic Peptide < 2.0 02/17/20 05:50: WBC 7.0, RBC 4.41, Hgb 12.1, Hct 37.8, MCV 85.7, MCH 27.4, MCHC 32.0, RDW Std Deviation 38.9, RDW Coeff of David 12.5, Plt Count 193, MPV 10.6, Immature Gran % (Auto) 4.300 H, Neut % (Auto) 67.6, Lymph % (Auto) 20.8, [place] % (Auto) 6.6, Eos % (Auto) 0.0, Baso % (Auto) 0.7, Absolute Neuts (auto) 4.7, Absolute Lymphs (auto) 1.45, Nucleated RBC % 0 02/17/20 05:50: Sodium 135 L, Potassium 3.5, Chloride 106, Carbon Dioxide 24.0, Anion Gap 5, BUN 5 L, Creatinine 0.57, Estim Creat Clear Calc 113.85, Est GFR (MDRD) Af Amer 165, Est GFR (MDRD) Non-Af 136, BUN/Creatinine Ratio 8.8 L, Glucose 101, Calcium 8.0 L, Total Bilirubin 0.40, AST 31, ALT 27, Alkaline Phosphatase 52, Total Protein 6.3 L, Albumin 2.6 L, Globulin 3.7, Albumin/Globulin Ratio 0.7 L 02/17/20 05:50: D-Dimer Quant (PE/DVT) 0.67 H* Current Medications Acetaminophen (Acetaminophen 325 Mg Tablet) 650 mg PO Q4H PRN PRN PRN Reason: Pain Score 1-10/Temp > 100.7 F Last Admin: 02/17/20 05:21 Dose: 650 mg Documented by: Al Hydroxide/Mg Hydroxide (Mag Hydrox/Al Hydrox/Simeth 30 Ml Udc) 30 ml PO Q6H PRN PRN PRN Reason: Gastric Burning Dexamethasone (Dexamethasone 4 Mg Tablet) 6 mg PO DAILY [facility] Stop: 02/26/20 10:01 Docusate Sodium (Docusate Sodium 100 Mg Capsule) 200 mg PO BID PRN PRN PRN Reason: Constipation Enoxaparin Sodium (Enoxaparin 40 Mg/0.4 Ml Syringe) 40 mg SC BID SHANEL Last Admin: 02/17/20 08:17 Dose: 40 mg Documented by: Guaifenesin (Guaifenesin 10 Ml Udc (200mg/10ml)) 10 ml PO Q4H PRN PRN PRN Reason: COUGH Last Admin: 02/17/20 05:21 Dose: 10 ml Documented by: Remdesivir 100 mg/ Sodium (Chloride) 250 mls @ 125 mls/hr IV DAILY [facility]; Protocol Stop: 02/21/20 11:59 Remdesivir 200 mg/ Sodium (Chloride) 250 mls @ 125 mls/hr IV X1 ONE; Protocol Stop: 02/17/20 16:59 Morphine Sulfate (Morphine 2 Mg/Ml Syringe) 1 - 2 mg IV Q4H PRN PRN PRN Reason: Pain Score 4-5 Morphine Sulfate (Morphine 2 Mg/Ml Syringe) 2 - 4 mg IV Q3H PRN PRN PRN Reason: Pain Score 6-10 Ondansetron HCl (Ondansetron 4 Mg/2 Ml Vial) 4 mg IV Q8H PRN PRN PRN Reason: NAUSEA/VOMITING Last Admin: 02/17/20 08:31 Dose: 4 mg Documented by: Oxycodone HCl (Oxycodone 5 Mg Tablet) 5 mg PO Q4H PRN PRN PRN Reason: Pain Score 4-5 Polyethylene Glycol (Polyethylene Glycol 3350 17 Gm Packet) 17 gm PO DAILY [facility]AN[facility] Last Admin: 02/17/20 08:17 Dose: Not Given Documented by: Prochlorperazine Edisylate (Prochlorperazine 10 Mg/2 Ml Vial) 10 mg IV Q6H PRN PRN PRN Reason: Nausea/Vomiting Sodium Chloride (0.9% Saline Lock 10 Ml Syringe) 10 - 40 ml IV UD PRN PRN Reason: SALINE FLUSH Last Admin: 02/17/20 08:31 Dose: 10 ml Documented by: STROKE Vital Signs/Narrative: Vital Signs Pulse 02/17/20 13:59 98 Medical Necessity - Tobacco Use Smoking Status: Never smoker Assessment/Plan All Active Problems COVID-19 (Acute) Hypoxia (Acute) Hypokalemia (Acute) 1. Acute hypoxic respiratory failure secondary to COVID-19 pneumonia -Her boyfriend is also positive Covid but he is less severe -She initially presented with oxygen saturations in the 80s, this afternoon they will try to take her off of oxygen she desatted down to 69% -We will continue with remdesivir as well as Decadron -Prophylactic Lovenox, D-dimer was only mildly elevated -Likely plan to discharge on aspirin daily for a few weeks once stable 2. Polycystic ovarian syndrome -We will hold her Metformin at this time DVT: Lovenox Inpatient E&M: [id number] Subs Hosp L2
--- NOTE | 2020-02-17 16:42 | PCM.HP.ID ---
Problem List (1) COVID-19 Status: Acute Reason for Consult: covid Consulted by: Dr. Wilkes History of Present Illness: The patient is a 24 year old F with h/o obesity, presented with sx starting around 02/08 with fever, chills, headache, cough, SOB, n/v/d, loss of taste/smell, and body aches. Boyfriend with mild illness, she thinks she got it from the gym. Worsening dyspnea, came to ED, admitted on dex and O2. Feeling about the same today. Full ROS performed and neg except as noted above. - Medical History Surgical History: reviewed Allergies/Adverse Reactions: Allergies No Known Allergies Allergy (Verified 01/05/15 08:18) Home Medications: Ambulatory Orders Medication Instructions Recorded Acetaminophen [Tylenol Extra 1,000 mg PO Q6H PRN PRN 02/16/20 Strength] Doxycycline Hyclate 100 mg PO BID 02/16/20 Metformin HCl [Metformin HCl ER] 500 mg PO DAILY 02/16/20 - Social History Tobacco Use: non-smoker Vital Signs Temp Pulse Resp BP Pulse Ox 99.3 F H 101 H 24 H 127/82 H 94 02/17/20 15:34 02/17/20 15:34 02/17/20 15:34 02/17/20 15:34 02/17/20 15:34 Oxygen Flow Rate (L/min) 2 Oxygen Delivery Method Nasal Cannula Weight: 99.337 kg Body Mass Index (BMI) 41.3 Microbiology Past 72 Hours 02/16/20 21:55 Respiratory Panel (PCR) - Final Mucosa - Nose 02/16/20 22:00 Legionella Antigen - Final Urine, Clean Catch Streptococcus pneumoniae Antigen (M - Final Laboratory Tests Past 24 Hrs 02/16/20 02/16/20 02/16/20 16:35 16:35 16:35 WBC 7.7 RBC 5.02 Hgb 13.7 Hct 42.1 MCV 83.9 MCH 27.3 MCHC 32.5 RDW Std Deviation 37.7 RDW Coeff of David 12.4 Plt Count 233 MPV 10.6 Immature Gran % (Auto) Neut % (Auto) Not Reportable Lymph % (Auto) [place] % (Auto) Eos % (Auto) Baso % (Auto) Absolute Neuts (auto) 5.2 Absolute Lymphs (auto) 1.68 Total Counted 100 Neutrophils % (Manual) 66 Band Neutrophils % 2 Lymphocytes % (Manual) 22 Monocytes % (Manual) 5 Myelocytes % 5 H Nucleated RBC % Diff Path Review Reviewed Platelet Estimate ADEQUATE RBC Morphology NORM C+C Anisocytosis RARE PT INR Fibrinogen D-Dimer Quant (PE/DVT) Sodium 137 Potassium 3.2 L Chloride 102 Carbon Dioxide 27.0 Anion Gap 8 BUN 7 Creatinine 0.75 Estim Creat Clear Calc 86.53 Est GFR (MDRD) Af Amer 121 Est GFR (MDRD) Non-Af 100 BUN/Creatinine Ratio 9.4 L Glucose 99 Lactic Acid 1.4 Calcium 8.6 Total Bilirubin 0.40 AST 35 ALT 35 Alkaline Phosphatase 62 Lactate Dehydrogenase Total Creatine Kinase C-React Prot Ext Range B-Natriuretic Peptide Total Protein 7.6 Albumin 3.3 Globulin 4.3 H Albumin/Globulin Ratio 0.8 L Procalcitonin 02/16/20 02/16/20 02/16/20 16:35 16:35 16:35 WBC RBC Hgb Hct MCV MCH MCHC RDW Std Deviation RDW Coeff of David Plt Count MPV Immature Gran % (Auto) Neut % (Auto) Lymph % (Auto) [place] % (Auto) Eos % (Auto) Baso % (Auto) Absolute Neuts (auto) Absolute Lymphs (auto) Total Counted Neutrophils % (Manual) Band Neutrophils % Lymphocytes % (Manual) Monocytes % (Manual) Myelocytes % Nucleated RBC % Diff Path Review Platelet Estimate RBC Morphology Anisocytosis PT 13.2 INR 1.1 Fibrinogen 625 H D-Dimer Quant (PE/DVT) 0.50 H Sodium Potassium Chloride Carbon Dioxide Anion Gap BUN Creatinine Estim Creat Clear Calc Est GFR (MDRD) Af Amer Est GFR (MDRD) Non-Af BUN/Creatinine Ratio Glucose Lactic Acid Calcium Total Bilirubin AST ALT Alkaline Phosphatase Lactate Dehydrogenase 317 H Total Creatine Kinase C-React Prot Ext Range B-Natriuretic Peptide Total Protein Albumin Globulin Albumin/Globulin Ratio Procalcitonin 0.10 H 02/16/20 02/16/20 02/17/20 16:35 16:35 05:50 WBC 7.0 RBC 4.41 Hgb 12.1 Hct 37.8 MCV 85.7 MCH 27.4 MCHC 32.0 RDW Std Deviation 38.9 RDW Coeff of David 12.5 Plt Count 193 MPV 10.6 Immature Gran % (Auto) 4.300 H Neut % (Auto) 67.6 Lymph % (Auto) 20.8 [place] % (Auto) 6.6 Eos % (Auto) 0.0 Baso % (Auto) 0.7 Absolute Neuts (auto) 4.7 Absolute Lymphs (auto) 1.45 Total Counted Neutrophils % (Manual) Band Neutrophils % Lymphocytes % (Manual) Monocytes % (Manual) Myelocytes % Nucleated RBC % 0 Diff Path Review Platelet Estimate RBC Morphology Anisocytosis PT INR Fibrinogen D-Dimer Quant (PE/DVT) Sodium Potassium Chloride Carbon Dioxide Anion Gap BUN Creatinine Estim Creat Clear Calc Est GFR (MDRD) Af Amer Est GFR (MDRD) Non-Af BUN/Creatinine Ratio Glucose Lactic Acid Calcium Total Bilirubin AST ALT Alkaline Phosphatase Lactate Dehydrogenase Total Creatine Kinase 282 H C-React Prot Ext Range 154.00 H B-Natriuretic Peptide < 2.0 Total Protein Albumin Globulin Albumin/Globulin Ratio Procalcitonin 02/17/20 02/17/20 05:50 05:50 WBC RBC Hgb Hct MCV MCH MCHC RDW Std Deviation RDW Coeff of David Plt Count MPV Immature Gran % (Auto) Neut % (Auto) Lymph % (Auto) [place] % (Auto) Eos % (Auto) Baso % (Auto) Absolute Neuts (auto) Absolute Lymphs (auto) Total Counted Neutrophils % (Manual) Band Neutrophils % Lymphocytes % (Manual) Monocytes % (Manual) Myelocytes % Nucleated RBC % Diff Path Review Platelet Estimate RBC Morphology Anisocytosis PT INR Fibrinogen D-Dimer Quant (PE/DVT) 0.67 H* Sodium 135 L Potassium 3.5 Chloride 106 Carbon Dioxide 24.0 Anion Gap 5 BUN 5 L Creatinine 0.57 Estim Creat Clear Calc 113.85 Est GFR (MDRD) Af Amer 165 Est GFR (MDRD) Non-Af 136 BUN/Creatinine Ratio 8.8 L Glucose 101 Lactic Acid Calcium 8.0 L Total Bilirubin 0.40 AST 31 ALT 27 Alkaline Phosphatase 52 Lactate Dehydrogenase Total Creatine Kinase C-React Prot Ext Range B-Natriuretic Peptide Total Protein 6.3 L Albumin 2.6 L Globulin 3.7 Albumin/Globulin Ratio 0.7 L Procalcitonin - Other Studies Radiology: [] reviewed Other Studies: [] Route of nutrition/ use of supplements: [] Nutritional Intake: [] IV Site: [] Rod Catheter: [] - Physical Exam General: Alert, Oriented x3, Cooperative HEENT: Atraumatic, PERRLA, EOMI Neck: Supple, No Nodes Lungs: Diminished, Rhonchi Cardiovascular: Regular rate, Regular Rhythm Abdomen: Soft, Non Tender, Non-Distended Extremities: No edema Skin: No rashes IV Site: Peripheral, without redness Musculoskeletal: No Tenderness to Palpation of Joints or Extremities Neurological: Cranial nerves II-XII grossly intact - Assessment/Plan Antibiotics: [] Assessment/Plan: [] covid with hypoxia - sx started around 02/09/20. Boyfriend also sick, recommended testing, he is in quarantine. On dex, intermediate dose lovenox. Will start remdesivir. Will follow, thank you
[2020-02-18] VITALS (14 sets, daily range): BP systolic 109–118; BP diastolic 74–78; PULSE 55–96; RESP 18–22; TEMP 35.1–36.8; O2SAT 88–97
[2020-02-18 07:49] LABS: Hematocrit 40.6 % (37-47); Hemoglobin 12.8 g/dL (12.0-15.0); Mean Corp Hgb Conc 31.5 g/dL (32-36); Mean Corpuscular Hgb 27.3 pg (27.0-32.0); Mean Corpuscular Volume 86.6 fL (81-99); Mean Platelet Vol. 11.1 fl (6.2-12.0); Platelet Count 228 K/mm3 (150-450); RBC Distribution Width CV 12.5 % (11.6-14.6); RBC Distribution Width SD 39.4 fl (35.1-43.9); Red Blood Count 4.69 M/mm3 (4.2-5.4); White Blood Count 6.6 K/mm3 (4.4-11.0)
[2020-02-18] MEDS: Enoxaparin 40 MG/0.4 ML Syringe SC ×2 (08:05→21:01)
[2020-02-18] MEDS: dexAMETHasone 4 MG Tablet 6 MG PO (08:05)
[2020-02-18 08:26] LABS: ALB/GLOB Ratio 0.7 RATIO (0.9-2.4); AST(SGOT) 20 U/L (15-37); Alanine Aminotransfer ALT/SGPT 25 U/L (13-56); Albumin, Serum 2.7 g/dL (3.2-5.0); Alkaline Phosphatase 51 U/L (45-117); Anion Gap 6 (5-15); BUN 10 mg/dL (7-18); BUN/Creat Ratio 21.5 RATIO (10-20); Chloride 109 mmol/L (98-107); Creatinine, Serum 0.46 mg/dL (0.55-1.02); EST Glomerular Filtration Rate 173 mL/min (>60); Est Glom Filt Rate - Afr Amer 209 mL/min (>60); Estimated Creatinine Clearance 141.08 ml/min; Globulin 4.1 g/dL (2.2-4.2); Glucose 95 mg/dL (74-106); Potassium 3.6 mmol/L (3.5-5.1); Protein, Total 6.8 g/dL (6.4-8.2); Sodium Level 142 mmol/L (136-145)
[2020-02-18] MEDS: guaiFENesin 10 ML UDC (200MG/10ML) PO ×2 (10:15→18:31)
[2020-02-18] MEDS: 0.9% Saline Lock 10 ML Syringe IV ×2 (10:15→21:03)
--- NOTE | 2020-02-18 11:21 | PCM.PN.HOSP ---
Patient Problems: Active and Suspected Problems COVID-19 (Acute) Subjective: Doing well. No issues overnight. She still remains on 2 L nasal cannula Vitals/I&O's: Vital Signs Temp Pulse Resp BP Pulse Ox 95.2 F L 96 20 H 115/74 97 02/18/20 07:57 02/18/20 10:00 02/18/20 07:57 02/18/20 07:57 02/18/20 08:36 Oxygen Flow Rate (L/min) 2 Oxygen Delivery Method Nasal Cannula Weight: 219 lb Body Mass Index (BMI) 41.3 Intake and Output for Last 24 Hours 02/16/20 02/17/20 02/18/20 23:59 23:59 23:59 Intake Total 740 / 740 3070 / 3770 700 / 700 Balance 740 / 740 3070 / 3770 700 / 700 General: Alert, Oriented x3, Cooperative, No apparent distress HEENT: Atraumatic, PERRLA, EOMI, Normocephalic Oral: Moist Mucosa Neck: Supple, No JVD Lungs: No rhonchi, No wheeze, No rales, Diminished, Tachypneic Cardiovascular: Regular rate, regular Rhythm, Normal S1, Normal S2, No murmurs Abdomen: Soft, Non Tender, Non-Distended, No Hepato-splenomegaly Extremities: No edema, Capillary Refill Less than 3 Seconds Skin: No rashes, No breakdown Neurological: Neuro grossly intact, Sensory exam intact to light touch and pain Psych/Mental Status: Normal Affect, Appropriate Microbiology Past 72 Hours 02/16/20 21:55 Mucosa - Nose Respiratory Panel (PCR) - Final 02/16/20 22:00 Urine, Clean Catch Legionella Antigen - Final 02/16/20 22:00 Urine, Clean Catch Streptococcus pneumoniae Antigen (M - Final Laboratory Results 02/16/20 16:35: Diff Path Review Reviewed 02/18/20 07:14: WBC 6.6, RBC 4.69, Hgb 12.8, Hct 40.6, MCV 86.6, MCH 27.3, MCHC 31.5 L, RDW Std Deviation 39.4, RDW Coeff of David 12.5, Plt Count 228, MPV 11.1 02/18/20 07:14: Sodium 142, Potassium 3.6, Chloride 109 H, Carbon Dioxide 27.0, Anion Gap 6, BUN 10, Creatinine 0.46 L, Estim Creat Clear Calc 141.08, Est GFR (MDRD) Af Amer 209, Est GFR (MDRD) Non-Af 173, BUN/Creatinine Ratio 21.5 H, Glucose 95, Calcium 9.0, Total Bilirubin 0.30, AST 20, ALT 25, Alkaline Phosphatase 51, Total Protein 6.8, Albumin 2.7 L, Globulin 4.1, Albumin/Globulin Ratio 0.7 L Current Medications Acetaminophen (Acetaminophen 325 Mg Tablet) 650 mg PO Q4H PRN PRN PRN Reason: Pain Score 1-10/Temp > 100.7 F Last Admin: 02/17/20 20:31 Dose: 650 mg Documented by: Al Hydroxide/Mg Hydroxide (Mag Hydrox/Al Hydrox/Simeth 30 Ml Udc) 30 ml PO Q6H PRN PRN PRN Reason: Gastric Burning Dexamethasone (Dexamethasone 4 Mg Tablet) 6 mg PO DAILY [facility] Stop: 02/26/20 10:01 Last Admin: 02/18/20 08:05 Dose: 6 mg Documented by: Docusate Sodium (Docusate Sodium 100 Mg Capsule) 200 mg PO BID PRN PRN PRN Reason: Constipation Enoxaparin Sodium (Enoxaparin 40 Mg/0.4 Ml Syringe) 40 mg SC BID [facility] Last Admin: 02/18/20 08:05 Dose: 40 mg Documented by: Guaifenesin (Guaifenesin 10 Ml Udc (200mg/10ml)) 10 ml PO Q4H PRN PRN PRN Reason: COUGH Last Admin: 02/18/20 10:15 Dose: 10 ml Documented by: Remdesivir 100 mg/ Sodium (Chloride) 250 mls @ 125 mls/hr IV DAILY [facility]; Protocol Stop: 02/21/20 11:59 Last Admin: 02/18/20 10:15 Dose: 125 mls/hr Documented by: Morphine Sulfate (Morphine 2 Mg/Ml Syringe) 1 - 2 mg IV Q4H PRN PRN PRN Reason: Pain Score 4-5 Morphine Sulfate (Morphine 2 Mg/Ml Syringe) 2 - 4 mg IV Q3H PRN PRN PRN Reason: Pain Score 6-10 Ondansetron HCl (Ondansetron 4 Mg/2 Ml Vial) 4 mg IV Q8H PRN PRN PRN Reason: NAUSEA/VOMITING Last Admin: 02/17/20 08:31 Dose: 4 mg Documented by: Oxycodone HCl (Oxycodone 5 Mg Tablet) 5 mg PO Q4H PRN PRN PRN Reason: Pain Score 4-5 Polyethylene Glycol (Polyethylene Glycol 3350 17 Gm Packet) 17 gm PO DAILY [facility] Last Admin: 02/18/20 08:05 Dose: Not Given Documented by: Prochlorperazine Edisylate (Prochlorperazine 10 Mg/2 Ml Vial) 10 mg IV Q6H PRN PRN PRN Reason: Nausea/Vomiting Sodium Chloride (0.9% Saline Lock 10 Ml Syringe) 10 - 40 ml IV UD PRN PRN Reason: SALINE FLUSH Last Admin: 02/18/20 10:15 Dose: 10 ml Documented by: STROKE Vital Signs/Narrative: Vital Signs Temp Pulse Resp BP Pulse Ox 02/18/20 10:00 96 02/18/20 08:36 97 02/18/20 07:57 95.2 F L 78 20 H 115/74 97 Medical Necessity - Tobacco Use Smoking Status: Never smoker Assessment/Plan All Active Problems COVID-19 (Acute) Hypoxia (Acute) Hypokalemia (Acute) 1. Acute hypoxic respiratory failure secondary to COVID-19 pneumonia -Her boyfriend is also positive Covid but he is less severe -She initially presented with oxygen saturations in the 80s -We will continue with remdesivir as well as Decadron -Prophylactic Lovenox, D-dimer was only mildly elevated -Likely plan to discharge on aspirin daily for a few weeks once stable 2. Polycystic ovarian syndrome -We will hold her Metformin at this time DVT: Lovenox Inpatient E&M: [id number] Subs Hosp L2
--- NOTE | 2020-02-18 13:36 | NURSING ---
O2 SAT 93% ON 2L NC - DECREASED TO 1L NC - WILL MONITOR.
--- NOTE | 2020-02-18 18:19 | NURSING ---
O2 INCREASED TO 2L NC
[2020-02-19] VITALS (13 sets, daily range): BP systolic 107–120; BP diastolic 57–79; PULSE 56–76; RESP 18–20; TEMP 35.3–36.6; O2SAT 87–95
[2020-02-19 06:56] LABS: Hematocrit 40.5 % (37-47); Hemoglobin 12.9 g/dL (12.0-15.0); Mean Corp Hgb Conc 31.9 g/dL (32-36); Mean Corpuscular Hgb 27.1 pg (27.0-32.0); Mean Corpuscular Volume 85.1 fL (81-99); Mean Platelet Vol. 11.3 fl (6.2-12.0); Platelet Count 303 K/mm3 (150-450); RBC Distribution Width CV 12.3 % (11.6-14.6); RBC Distribution Width SD 38.5 fl (35.1-43.9); Red Blood Count 4.76 M/mm3 (4.2-5.4); White Blood Count 9.3 K/mm3 (4.4-11.0)
[2020-02-19 07:24] LABS: ALB/GLOB Ratio 0.7 RATIO (0.9-2.4); AST(SGOT) 16 U/L (15-37); Alanine Aminotransfer ALT/SGPT 25 U/L (13-56); Albumin, Serum 2.8 g/dL (3.2-5.0); Alkaline Phosphatase 52 U/L (45-117); Anion Gap 9 (5-15); BUN 15 mg/dL (7-18); Calcium,Total 8.9 mg/dL (8.5-10.1); Chloride 107 mmol/L (98-107); Creatinine, Serum 0.52 mg/dL (0.55-1.02); EST Glomerular Filtration Rate 153 mL/min (>60); Est Glom Filt Rate - Afr Amer 185 mL/min (>60); Globulin 3.9 g/dL (2.2-4.2); Glucose 105 mg/dL (74-106); Potassium 3.9 mmol/L (3.5-5.1); Protein, Total 6.7 g/dL (6.4-8.2); Sodium Level 143 mmol/L (136-145)
[2020-02-19] MEDS: Enoxaparin 40 MG/0.4 ML Syringe SC ×2 (08:52→21:33)
[2020-02-19] MEDS: dexAMETHasone 4 MG Tablet 6 MG PO (08:53)
--- NOTE | 2020-02-19 09:49 | PCM.PN.PUL ---
Patient Problems: Active and Suspected Problems COVID-19 (Acute) Subjective: The patient was seen and examined at the bedside this morning. Events from the last 24 hours have been reviewed. The patient is currently afebrile, hemodynamically stable and maintaining appropriate oxygen saturations on 2 L/min via nasal cannula. The patient continues to have a nonproductive cough and does report the presence of exertional dyspnea. The patient remains on remdesivir and Decadron. Liver and renal function are stable. Objective: The patient's most recent lab work, culture data and imaging studies have all been personally reviewed. - Physical Exam Vitals/I&O's: Vital Signs Temp Pulse Resp BP Pulse Ox 96.3 F L 76 20 H 113/74 87 02/19/20 08:44 02/19/20 08:44 02/19/20 08:44 02/19/20 08:44 02/19/20 08:49 Oxygen Flow Rate (L/min) 2 Oxygen Delivery Method Nasal Cannula Weight: 219 lb Body Mass Index (BMI) 41.3 Intake and Output for Last 24 Hours 02/17/20 02/18/20 02/19/20 23:59 23:59 23:59 Intake Total 3070 / 3770 1550 / 1550 300 / 300 Balance 3070 / 3770 1550 / 1550 300 / 300 General: Alert, Oriented x3, Cooperative, No apparent distress, - - Sitting in bedside recliner eating breakfast. HEENT: Atraumatic, PERRLA, Normocephalic Oral: No Gingival or Mucosal Lesions/ Ulcerations Neck: Supple, No Nodes, Trachea Midline Lungs: Diminished Cardiovascular: Regular rate, Regular Rhythm Abdomen: Bowel Sounds Present, Soft, Non Tender, Obese Extremities: No clubbing, No cyanosis, No edema Skin: No breakdown Musculoskeletal: No Tenderness to Palpation of Joints or Extremities, No Muscle Wasting Lymphatic: No Cervical, Supraclavicular, or Inguinal Adenopathy Neurological: Cranial nerves II-XII grossly intact, Neuro grossly intact Psych/Mental Status: Alert and oriented to time, place, person, mood and affect Labs (Last 48 Hours) 02/16/20 02/18/20 02/18/20 16:35 07:14 07:14 WBC 6.6 RBC 4.69 Hgb 12.8 Hct 40.6 MCV 86.6 MCH 27.3 MCHC 31.5 L RDW Std Deviation 39.4 RDW Coeff of David 12.5 Plt Count 228 MPV 11.1 Diff Path Review Reviewed Sodium 142 Potassium 3.6 Chloride 109 H Carbon Dioxide 27.0 Anion Gap 6 BUN 10 Creatinine 0.46 L Estim Creat Clear Calc 141.08 Est GFR (MDRD) Af Amer 209 Est GFR (MDRD) Non-Af 173 BUN/Creatinine Ratio 21.5 H Glucose 95 Calcium 9.0 Total Bilirubin 0.30 AST 20 ALT 25 Alkaline Phosphatase 51 Total Protein 6.8 Albumin 2.7 L Globulin 4.1 Albumin/Globulin Ratio 0.7 L 02/19/20 02/19/20 05:10 05:10 WBC 9.3 RBC 4.76 Hgb 12.9 Hct 40.5 MCV 85.1 MCH 27.1 MCHC 31.9 L RDW Std Deviation 38.5 RDW Coeff of David 12.3 Plt Count 303 MPV 11.3 Diff Path Review Sodium 143 Potassium 3.9 Chloride 107 Carbon Dioxide 27.0 Anion Gap 9 BUN 15 Creatinine 0.52 L Estim Creat Clear Calc 124.80 Est GFR (MDRD) Af Amer 185 Est GFR (MDRD) Non-Af 153 BUN/Creatinine Ratio 29.0 H Glucose 105 Calcium 8.9 Total Bilirubin 0.30 AST 16 ALT 25 Alkaline Phosphatase 52 Total Protein 6.7 Albumin 2.8 L Globulin 3.9 Albumin/Globulin Ratio 0.7 L Clinical Impression(s) from Imaging Studies Chest X-Ray 02/16/20 16:10 IMPRESSION: Patchy interstitial and air space opacifications of both lung walker. Differential as described above. Electronically Signed: Wong Guillen MD at 16:26 EST , Service support , Current Medications Acetaminophen (Acetaminophen 325 Mg Tablet) 650 mg PO Q4H PRN PRN PRN Reason: Pain Score 1-10/Temp > 100.7 F Last Admin: 02/17/20 20:31 Dose: 650 mg Documented by: Al Hydroxide/Mg Hydroxide (Mag Hydrox/Al Hydrox/Simeth 30 Ml Udc) 30 ml PO Q6H PRN PRN PRN Reason: Gastric Burning Dexamethasone (Dexamethasone 4 Mg Tablet) 6 mg PO DAILY [facility] Stop: 02/26/20 10:01 Last Admin: 02/19/20 08:53 Dose: 6 mg Documented by: Docusate Sodium (Docusate Sodium 100 Mg Capsule) 200 mg PO BID PRN PRN PRN Reason: Constipation Enoxaparin Sodium (Enoxaparin 40 Mg/0.4 Ml Syringe) 40 mg SC BID [facility] Last Admin: 02/19/20 08:52 Dose: 40 mg Documented by: Guaifenesin (Guaifenesin 10 Ml Udc (200mg/10ml)) 10 ml PO Q4H PRN PRN PRN Reason: COUGH Last Admin: 02/18/20 18:31 Dose: 10 ml Documented by: Remdesivir 100 mg/ Sodium (Chloride) 250 mls @ 125 mls/hr IV DAILY [facility]; Protocol Stop: 02/21/20 11:59 Last Infusion: 02/18/20 12:15 Dose: Infused Documented by: Morphine Sulfate (Morphine 2 Mg/Ml Syringe) 1 - 2 mg IV Q4H PRN PRN PRN Reason: Pain Score 4-5 Morphine Sulfate (Morphine 2 Mg/Ml Syringe) 2 - 4 mg IV Q3H PRN PRN PRN Reason: Pain Score 6-10 Ondansetron HCl (Ondansetron 4 Mg/2 Ml Vial) 4 mg IV Q8H PRN PRN PRN Reason: NAUSEA/VOMITING Last Admin: 02/17/20 08:31 Dose: 4 mg Documented by: Oxycodone HCl (Oxycodone 5 Mg Tablet) 5 mg PO Q4H PRN PRN PRN Reason: Pain Score 4-5 Polyethylene Glycol (Polyethylene Glycol 3350 17 Gm Packet) 17 gm PO DAILY [facility] Last Admin: 02/19/20 08:55 Dose: Not Given Documented by: Prochlorperazine Edisylate (Prochlorperazine 10 Mg/2 Ml Vial) 10 mg IV Q6H PRN PRN PRN Reason: Nausea/Vomiting Sodium Chloride (0.9% Saline Lock 10 Ml Syringe) 10 - 40 ml IV UD PRN PRN Reason: SALINE FLUSH Last Admin: 02/18/20 21:03 Dose: 10 ml Documented by: Medical Necessity - Tobacco Use Smoking Status: Never smoker Assessment/Plan All Active Problems COVID-19 (Acute) Hypoxia (Acute) Hypokalemia (Acute) RECOMMENDATIONS: 1. Continue current supportive measures with supplemental oxygen to maintain saturations at or above 90%. 2. Continue Decadron 6 mg daily x10 days. 3. Continue Lovenox twice daily as ordered. 4. Continue remdesivir and monitor liver/renal function closely. 5. Encourage incentive spirometer use and mobilize patient as tolerated. IMPRESSIONS: 1. Acute hypoxemic respiratory insufficiency secondary to COVID-19 pneumonia The patient initially presented to the hospital with Covid-like symptoms of approximately 1.5 weeks duration. She did have recent contact with a coronavirus positive individual. She is currently maintaining appropriate oxygen saturations on 2 L/min. The patient will be continued on Decadron 6 mg daily x10 days, as ordered. D-dimer was not significantly elevated. Therefore, we will continue prophylactic dosing of Lovenox. Remdesivir will be continued as ordered. Encourage incentive spirometer use and mobilize patient as tolerated. This note was generated with [employer] dictation software. It may contain incorrect words, spelling, and punctuation that were not noted in checking the note before signing. Inpatient E&M: 42083 Subs Hosp L2
[2020-02-19] MEDS: 0.9% Saline Lock 10 ML Syringe IV ×2 (10:38→21:36)
[2020-02-19] MEDS: guaiFENesin 10 ML UDC (200MG/10ML) PO ×2 (10:38→21:42)
--- NOTE | 2020-02-19 11:06 | PN_ITS ---
Patient Problems: Active and Suspected Problems COVID-19 (Acute) Subjective: States that she does not feel any worse. That is just the shortness of breath now that the muscle aches and pains are essentially resolved. Vitals/I&O's: Vital Signs Temp Pulse Resp BP Pulse Ox 96.3 F L 76 20 H 113/74 87 02/19/20 08:44 02/19/20 08:44 02/19/20 08:44 02/19/20 08:44 02/19/20 08:49 Oxygen Flow Rate (L/min) 2 Oxygen Delivery Method Nasal Cannula Weight: 219 lb Body Mass Index (BMI) 41.3 Intake and Output for Last 24 Hours 02/17/20 02/18/20 02/19/20 23:59 23:59 23:59 Intake Total 3070 / 3770 1550 / 1550 300 / 300 Balance 3070 / 3770 1550 / 1550 300 / 300 General: Alert, Oriented x3, Cooperative, No apparent distress HEENT: Atraumatic, PERRLA, EOMI, Normocephalic Oral: Moist Mucosa Neck: Supple, No JVD Lungs: No rhonchi, No wheeze, No rales, Diminished Cardiovascular: Regular rate, regular Rhythm, Normal S1, Normal S2, No murmurs Abdomen: Soft, Non Tender, Non-Distended, No Hepato-splenomegaly Extremities: No edema, Capillary Refill Less than 3 Seconds Skin: No rashes, No breakdown Neurological: Neuro grossly intact, Sensory exam intact to light touch and pain Psych/Mental Status: Normal Affect, Appropriate Microbiology Past 72 Hours 02/16/20 21:55 Mucosa - Nose Respiratory Panel (PCR) - Final 02/16/20 22:00 Urine, Clean Catch Legionella Antigen - Final 02/16/20 22:00 Urine, Clean Catch Streptococcus pneumoniae Antigen (M - Final Laboratory Results 02/19/20 05:10: WBC 9.3, RBC 4.76, Hgb 12.9, Hct 40.5, MCV 85.1, MCH 27.1, MCHC 31.9 L, RDW Std Deviation 38.5, RDW Coeff of David 12.3, Plt Count 303, MPV 11.3 02/19/20 05:10: Sodium 143, Potassium 3.9, Chloride 107, Carbon Dioxide 27.0, Anion Gap 9, BUN 15, Creatinine 0.52 L, Estim Creat Clear Calc 124.80, Est GFR (MDRD) Af Amer 185, Est GFR (MDRD) Non-Af 153, BUN/Creatinine Ratio 29.0 H, Glucose 105, Calcium 8.9, Total Bilirubin 0.30, AST 16, ALT 25, Alkaline Phosphatase 52, Total Protein 6.7, Albumin 2.8 L, Globulin 3.9, Albumin/Globulin Ratio 0.7 L Current Medications Acetaminophen (Acetaminophen 325 Mg Tablet) 650 mg PO Q4H PRN PRN PRN Reason: Pain Score 1-10/Temp > 100.7 F Last Admin: 02/17/20 20:31 Dose: 650 mg Documented by: Al Hydroxide/Mg Hydroxide (Mag Hydrox/Al Hydrox/Simeth 30 Ml Udc) 30 ml PO Q6H PRN PRN PRN Reason: Gastric Burning Dexamethasone (Dexamethasone 4 Mg Tablet) 6 mg PO DAILY [facility] Stop: 02/26/20 10:01 Last Admin: 02/19/20 08:53 Dose: 6 mg Documented by: Docusate Sodium (Docusate Sodium 100 Mg Capsule) 200 mg PO BID PRN PRN PRN Reason: Constipation Enoxaparin Sodium (Enoxaparin 40 Mg/0.4 Ml Syringe) 40 mg SC BID [facility] Last Admin: 02/19/20 08:52 Dose: 40 mg Documented by: Guaifenesin (Guaifenesin 10 Ml Udc (200mg/10ml)) 10 ml PO Q4H PRN PRN PRN Reason: COUGH Last Admin: 02/19/20 10:38 Dose: 10 ml Documented by: Remdesivir 100 mg/ Sodium (Chloride) 250 mls @ 125 mls/hr IV DAILY [facility]; Protocol Stop: 02/21/20 11:59 Last Admin: 02/19/20 10:37 Dose: 125 mls/hr Documented by: Morphine Sulfate (Morphine 2 Mg/Ml Syringe) 1 - 2 mg IV Q4H PRN PRN PRN Reason: Pain Score 4-5 Morphine Sulfate (Morphine 2 Mg/Ml Syringe) 2 - 4 mg IV Q3H PRN PRN PRN Reason: Pain Score 6-10 Ondansetron HCl (Ondansetron 4 Mg/2 Ml Vial) 4 mg IV Q8H PRN PRN PRN Reason: NAUSEA/VOMITING Last Admin: 02/17/20 08:31 Dose: 4 mg Documented by: Oxycodone HCl (Oxycodone 5 Mg Tablet) 5 mg PO Q4H PRN PRN PRN Reason: Pain Score 4-5 Polyethylene Glycol (Polyethylene Glycol 3350 17 Gm Packet) 17 gm PO DAILY [facility] Last Admin: 02/19/20 08:55 Dose: Not Given Documented by: Prochlorperazine Edisylate (Prochlorperazine 10 Mg/2 Ml Vial) 10 mg IV Q6H PRN PRN PRN Reason: Nausea/Vomiting Sodium Chloride (0.9% Saline Lock 10 Ml Syringe) 10 - 40 ml IV UD PRN PRN Reason: SALINE FLUSH Last Admin: 02/19/20 10:38 Dose: 10 ml Documented by: STROKE Vital Signs/Narrative: Vital Signs Temp Pulse Resp BP Pulse Ox 02/19/20 08:49 87 02/19/20 08:44 96.3 F L 76 20 H 113/74 93 02/19/20 07:56 94 Medical Necessity - Tobacco Use Smoking Status: Never smoker Assessment/Plan All Active Problems COVID-19 (Acute) Hypoxia (Acute) Hypokalemia (Acute) 1. Acute hypoxic respiratory failure secondary to COVID-19 pneumonia -Her boyfriend is also positive Covid but he is less severe -She initially presented with oxygen saturations in the 80s, with ambulation her oxygen sat dropped down to 87 -We will continue with remdesivir as well as Decadron -Prophylactic Lovenox, D-dimer was only mildly elevated -Likely plan to discharge on aspirin daily for a few weeks once stable -She would like to be sure that she can be okay at home as she has a 2-1/2-hour drive after discharge to get back to [place]. She is allergic to both the dog and the rabbit that lives in her house so she is also concerned about what affect that allergy will have on her. 2. Polycystic ovarian syndrome -We will hold her Metformin at this time DVT: Lovenox Inpatient E&M: 35005 Subs Hosp L2
[2020-02-20] VITALS (10 sets, daily range): BP systolic 104–113; BP diastolic 69–86; PULSE 58–73; RESP 18–20; TEMP 36.3–36.7; O2SAT 92–97
[2020-02-20 06:23] LABS: Hematocrit 42.2 % (37-47); Hemoglobin 13.4 g/dL (12.0-15.0); Mean Corp Hgb Conc 31.8 g/dL (32-36); Mean Corpuscular Hgb 27.3 pg (27.0-32.0); Mean Corpuscular Volume 85.9 fL (81-99); Mean Platelet Vol. 10.8 fl (6.2-12.0); Platelet Count 374 K/mm3 (150-450); RBC Distribution Width CV 12.4 % (11.6-14.6); RBC Distribution Width SD 38.8 fl (35.1-43.9); Red Blood Count 4.91 M/mm3 (4.2-5.4); White Blood Count 12.5 K/mm3 (4.4-11.0)
[2020-02-20 06:54] LABS: ALB/GLOB Ratio 0.7 RATIO (0.9-2.4); AST(SGOT) 23 U/L (15-37); Alanine Aminotransfer ALT/SGPT 28 U/L (13-56); Albumin, Serum 2.7 g/dL (3.2-5.0); Alkaline Phosphatase 48 U/L (45-117); Anion Gap 9 (5-15); BUN 14 mg/dL (7-18); Calcium,Total 8.4 mg/dL (8.5-10.1); Chloride 108 mmol/L (98-107); Globulin 3.7 g/dL (2.2-4.2); Glucose 111 mg/dL (74-106); Potassium 3.9 mmol/L (3.5-5.1); Protein, Total 6.4 g/dL (6.4-8.2); Sodium Level 143 mmol/L (136-145)
[2020-02-20] MEDS: Enoxaparin 40 MG/0.4 ML Syringe SC (10:20)
[2020-02-20] MEDS: 0.9% Saline Lock 10 ML Syringe IV (10:20)
[2020-02-20] MEDS: dexAMETHasone 4 MG Tablet 6 MG PO (10:21)
--- NOTE | 2020-02-20 14:12 | DCINST_ITS ---
- Discharge Diagnoses Current Active Problems: Current Active and Chronic Problems COVID-19 (Acute) You will use the following diet at home:: No restrictions Your food should be the consistency of: Regular Call your doctor if you observe: - - Worsening shortness of breath persistent fevers. Allergies/Adverse Reactions: Allergies No Known Allergies Allergy (Verified 01/05/15 08:18) Medications to take at Discharge Acetaminophen [Tylenol] 1,000 mg PO Q6H PRN PRN 02/16/20 Metformin HCl [Metformin HCl ER] 500 mg PO DAILY 02/16/20 Primary Care Physician: Care Physician,No Primary [Primary Care Provider] - Test Results: Test results from this visit will be discussed in further detail at your follow- up appointment, if applicable. Proposed Discharge Date: 02/20/20
--- NOTE | 2020-02-20 14:13 | DS.PCM_ITS ---
Discharge Date and Diagnosis - Problem List Patient Problems: Active and Suspected Problems COVID-19 (Acute) Date of Admission: 02/16/20 Date of Discharge: 02/20/20 - Primary Discharge Diagnosis Acute Problems: Active Problems COVID-19 (Acute) Hospital Course and Treatment Imaging Results: Clinical Impression(s) from Imaging Studies Chest X-Ray 02/16/20 16:10 IMPRESSION: Patchy interstitial and air space opacifications of both lung walker. Differential as described above. Electronically Signed: Wong Guillen MD at 16:26 EST , Service support , TASHA Morales Operations: None Procedures: None Summary of Care Provided: The patient is a 24 year old F presents with shortness of breath. Patient tested positive per the patient on the . Just became more short of breath and her boyfriend also tested positive for COVID-19. Patient had a sats into the 80s. She presented here for treatment. Patient was started on dexamethasone and remdesivir. Patient overall is improved and currently 92% on room air. Patient feels well enough to go home and will be picked up by her boyfriend and driven back to [place]. Patient was active and working out think she may have contracted COVID-19 from her gym. Patient advised, to quarantine for another 2 days complete a 10 days of quarantining but when she does go back into her workout regimen to ease back and. Advised to beginning with walking and then then to advance that as she feels that she is able but told her that she should not expect to be back into her normal fitness level right away. Advised patient to wear a mask when she is out as well [] Patient Problems: Active and Suspected Problems COVID-19 (Acute) - Physical Exam Vitals/I&O's: Vital Signs Temp Pulse Resp BP Pulse Ox 36.3 C L 73 18 113/76 92 02/20/20 08:52 02/20/20 08:52 02/20/20 08:52 02/20/20 08:52 02/20/20 11:50 Oxygen Flow Rate (L/min) 1 Oxygen Delivery Method Room Air Weight: 99.337 kg Body Mass Index (BMI) 41.3 Intake and Output for Last 24 Hours 02/18/20 02/19/20 02/20/20 23:59 23:59 23:59 Intake Total 1550 / 1550 1929 350 / 350 Balance 155 / [id number] 350 / 350 General: Alert, No apparent distress HEENT: Atraumatic, Normocephalic Oral: Moist Mucosa, No Gingival or Mucosal Lesions/ Ulcerations Lungs: - - bibasilar crackles Cardiovascular: Regular rate, Regular Rhythm, Normal S1, Normal S2 Abdomen: Bowel Sounds Present, Soft, Non Tender, Non-Distended Psych/Mental Status: Normal Affect, Appropriate Laboratory Results 02/20/20 06:02: WBC 12.5 H, RBC 4.91, Hgb 13.4, Hct 42.2, MCV 85.9, MCH 27.3, MCHC 31.8 L, RDW Std Deviation 38.8, RDW Coeff of David 12.4, Plt Count 374, MPV 10.8 02/20/20 06:02: Sodium 143, Potassium 3.9, Chloride 108 H, Carbon Dioxide 26.0, Anion Gap 9, BUN 14, Creatinine 0.57, Estim Creat Clear Calc 113.85, Est GFR (MDRD) Af Amer 164, Est GFR (MDRD) Non-Af 136, BUN/Creatinine Ratio 24.4 H, Glucose 111 H, Calcium 8.4 L, Total Bilirubin 0.30, AST 23, ALT 28, Alkaline Phosphatase 48, Total Protein 6.4, Albumin 2.7 L, Globulin 3.7, Albumin/Globulin Ratio 0.7 L Current Medications Acetaminophen (Acetaminophen 325 Mg Tablet) 650 mg PO Q4H PRN PRN PRN Reason: Pain Score 1-10/Temp > 100.7 F Last Admin: 02/17/20 20:31 Dose: 650 mg Documented by: Al Hydroxide/Mg Hydroxide (Mag Hydrox/Al Hydrox/Simeth 30 Ml Udc) 30 ml PO Q6H PRN PRN PRN Reason: Gastric Burning Dexamethasone (Dexamethasone 4 Mg Tablet) 6 mg PO DAILY [facility] Stop: 02/26/20 10:01 Last Admin: 02/20/20 10:21 Dose: 6 mg Documented by: Docusate Sodium (Docusate Sodium 100 Mg Capsule) 200 mg PO BID PRN PRN PRN Reason: Constipation Enoxaparin Sodium (Enoxaparin 40 Mg/0.4 Ml Syringe) 40 mg SC BID [facility] Last Admin: 02/20/20 10:20 Dose: 40 mg Documented by: Guaifenesin (Guaifenesin 10 Ml Udc (200mg/10ml)) 10 ml PO Q4H PRN PRN PRN Reason: COUGH Last Admin: 02/19/20 21:42 Dose: 10 ml Documented by: Remdesivir 100 mg/ Sodium (Chloride) 250 mls @ 125 mls/hr IV DAILY [facility]; Protocol Stop: 02/21/20 11:59 Last Infusion: 02/20/20 12:19 Dose: Infused Documented by: Morphine Sulfate (Morphine 2 Mg/Ml Syringe) 1 - 2 mg IV Q4H PRN PRN PRN Reason: Pain Score 4-5 Morphine Sulfate (Morphine 2 Mg/Ml Syringe) 2 - 4 mg IV Q3H PRN PRN PRN Reason: Pain Score 6-10 Ondansetron HCl (Ondansetron 4 Mg/2 Ml Vial) 4 mg IV Q8H PRN PRN PRN Reason: NAUSEA/VOMITING Last Admin: 02/17/20 08:31 Dose: 4 mg Documented by: Oxycodone HCl (Oxycodone 5 Mg Tablet) 5 mg PO Q4H PRN PRN PRN Reason: Pain Score 4-5 Polyethylene Glycol (Polyethylene Glycol 3350 17 Gm Packet) 17 gm PO DAILY [facility] Last Admin: 02/20/20 10:22 Dose: Not Given Documented by: Prochlorperazine Edisylate (Prochlorperazine 10 Mg/2 Ml Vial) 10 mg IV Q6H PRN PRN PRN Reason: Nausea/Vomiting Sodium Chloride (0.9% Saline Lock 10 Ml Syringe) 10 - 40 ml IV UD PRN PRN Reason: SALINE FLUSH Last Admin: 02/20/20 10:20 Dose: 10 ml Documented by: Discharge Diet: No Restrictions Call your doctor if you observe: - - Worsening shortness of breath persistent fevers. Home Medications: Medications to take at Discharge Acetaminophen [Tylenol] 1,000 mg PO Q6H PRN PRN 02/16/20 Metformin HCl [Metformin HCl ER] 500 mg PO DAILY 02/16/20 Primary Care Physician: Care Physician,No Primary [Primary Care Provider] - Disposition: Home Minutes spent on discharge:: 28 Patient Condition:: Good Medical Necessity - Tobacco Use Smoking Status: Never smoker Meaningful Use Info Meaningful Use Diagnoses (Choose all that apply): None applicable Inpatient E&M: 16832 Disch Hosp
[2020-02-20 17:09] LABS: BUN/Creat Ratio 17.3 RATIO (10-20); Creatinine, Serum 0.81 mg/dL (0.55-1.02); EST Glomerular Filtration Rate 92 mL/min (>60); Est Glom Filt Rate - Afr Amer 112 mL/min (>60); Estimated Creatinine Clearance 80.12 ml/min
== END 2020-02-20 17:18 | disposition home or self-care (01) | DRG 177 ==
LOC: ED 17:37 → MS2 18:01
PROVIDERS: Family Medicine; Internal Medicine Infectious Disease; Admitting Provider Student in an Organized Health Care Education/Training Program; Emergency Provider Emergency Medicine
DX: U07.1 COVID-19 (principal); J12.89 Other viral pneumonia; Z68.41 Body mass index [BMI] 40.0-44.9, adult; R06.89 Other abnormalities of breathing; R09.02 Hypoxemia; E87.6 Hypokalemia; E28.2 Polycystic ovarian syndrome; E66.9 Obesity, unspecified
CPT/HCPCS: 36415; 71045; 80053; 82550; 83605; 83615; 83880; 84145; 85025; 85027; 85379; 85384; 85610; 86140; 87449; 87633; 99285; J7030; J7040; J7050; 90686; A4216; J2405